=== PATIENT | female | born 1990 | race African-American/Black ===

== ENCOUNTER 2019-04-24 12:28 | Emergency (ER) | payer BC, MEDICAID ==
[~2019-04-24] VITALS: Ht 160 cm; Wt 60.0 kg
[2019-04-24] MEDS ORDERED: HYDROCODONE/ACETAMINOPHEN 5/325MG TABLET PO ONE (14:00)
[2019-04-24] MEDS ORDERED: ONDANSETRON 4MG ODT PO ONE (14:00)
[2019-04-24 14:23] VITALS: BP 127/82
== END 2019-04-24 15:07 | disposition home or self-care (01) ==
LOC: ER 12:28
DX: S82.831A Other fracture of upper and lower end of right fibula, initial encounter for closed fracture (principal); W18.39XA Other fall on same level, initial encounter; Y93.89 Activity, other specified; Y92.89 Other specified places as the place of occurrence of the external cause; Y99.8 Other external cause status; F12.10 Cannabis abuse, uncomplicated; Z98.890 Other specified postprocedural states
CPT/HCPCS: 29515; 73610; 73630; 81025; 99283; Q0162